=== PATIENT | female | born 1980 | race Caucasian/White ===

== ENCOUNTER 2016-09-23 06:54 | Emergency (ER) | payer OTHER ==
[~2016-09-23] VITALS: Ht 162.6 cm; Wt 80.0 kg
[2016-09-23 06:59] VITALS: Ht 162.6 cm; Wt 80.0 kg
[2016-09-23] MEDS ORDERED: LORAZEPAM 1 MG TAB PO ONE (07:30)
[2016-09-23 07:39] LABS: ADD SCAN DIFF NO
[2016-09-23 07:51] LABS: BASOPHILS % 0.4 % (0.0-2.0); EOSINOPHILS # 0.1 10^3/ul (0.0-0.5); EOSINOPHILS % 0.9 % (0.0-7.0); HEMATOCRIT 35.8 % (37.0-47.0); HEMOGLOBIN 11.7 g/dl (12.0-16.0); LYMPHOCYTES # 1.9 10^3/ul (0.8-2.9); LYMPHOCYTES % 20.6 % (15.0-51.0); MEAN CORPUSCULAR HEMOGLOBIN 28.2 pg (29.0-33.0); MEAN CORPUSCULAR HGB CONC 32.7 g/dl (32.0-37.0); MEAN CORPUSCULAR VOLUME 86.3 fl (82.0-101.0); MEAN PLATELET VOLUME 10.4 fl (7.4-10.4); MONOCYTE # 0.5 10^3/ul (0.3-0.9); MONOCYTES % 5.4 % (0.0-11.0); NEUTROPHIL # 6.8 10^3/ul (1.6-7.5); NEUTROPHILS % 72.5 % (39.0-77.0); PLATELET COUNT 321 10^3/UL (140-415); RED BLOOD COUNT 4.15 10^6/ul (4.20-5.40); RED CELL DISTRIBUTION WIDTH 13.6 % (11.5-14.5); WHITE BLOOD COUNT 9.4 10^3/ul (4.8-10.8)
[2016-09-23 08:19] LABS: CHLORIDE 106 mmol/L (97-110); POTASSIUM 3.9 mmol/L (3.5-5.1); SODIUM 140 mmol/L (135-144)
[2016-09-23 08:22] LABS: ANION GAP 8 (8-16); BLOOD UREA NITROGEN 23 mg/dl (7-20); CARBON DIOXIDE 30 mmol/L (21-31); CREATININE 0.61 mg/dl (0.44-1.00)
[2016-09-23 08:23] LABS: CALCIUM 9.1 mg/dl (8.4-10.2); GLUCOSE 98 mg/dl (70-220)
[2016-09-23 08:28] LABS: CREATINE KINASE 58 IU/L (23-200)
--- NOTE | 2016-09-23 08:33 | RADRPT ---
PROCEDURE: XR Chest. CLINICAL INDICATION: Chest pain. TECHNIQUE: Single frontal radiograph. COMPARISON: None. FINDINGS: Bibasilar atelectasis without evidence of focal consolidation, pneumothorax, or pleural effusions. Heart size is within normal limits. IMPRESSION: No acute cardiopulmonary changes. RPTAT: EE .Jarek Espinoza MD, MD Date Time Electronically viewed and signed by .Jarek Espinoza MD, on 09/23/2016 08:37 .C/
[2016-09-23 08:34] LABS: TROPONIN-I < 0.012 ng/ml (0.00-0.12)
[2016-09-23 08:35] LABS: TROPONIN-I < 0.012 ng/ml (0.00-0.12)
--- NOTE | 2016-09-23 08:41 | ERD ---
ER Documentation Chief Complaint Date/Time DATE: 09/23/16 TIME: 06 Chief Complaint CP, in custoday [employer], meth use HPI 35-year-old female presents to the emergency department by ambulance in custody with police for evaluation of chest discomfort. Patient states she was taken into custody to by police today. At that time, she had a nonspecific sensation in her chest without radiation. It was spontaneous in onset but associated with methamphetamine use. She described feeling anxious. She had no shortness of breath or hemoptysis. Her pain was nonspecific, visceral, poorly localized and nonexertional. She rated it as a 6 out of 10. 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 Pre-hospital vital signs were reviewed. Pre-hospital diagnostic tests were reviewed. ROS All systems reviewed and are negative except as per history of present illness. Allergies Allergies: Coded Allergies: No Known Allergy (Unverified , 11/12/12) PMhx/Soc History of Surgery: Yes (,cholesystectectomy) Anesthesia Reaction: No Hx Neurological Disorder: No Hx Respiratory Disorders: No Hx Cardiac Disorders: No Hx Psychiatric Problems: No Hx Miscellaneous Medical Probl: No FmHx Noncontributory for chief complaint with no history of early cardiac disease Physical Exam Vitals Vital Signs Date Time Temp Pulse Resp B/P Pulse Ox O2 Delivery O2 Flow Rate FiO2 09/23/16 06:59 98.4 120 22 133/104 100 Physical Exam GENERAL: The patient is well developed and appropriate for usual state of health in no apparent distress HEENT: Pupils equal, round, and reactive to light. EOMI. There is no scleral icterus. NECK: C-spine is soft and supple, there is no meningismus. There is no cervical lymphadenopathy. LUNGS: Clear to auscultation bilaterally. There are no rales, wheezes or rhonchi. HEART: Regular rate and rhythm, no murmurs, clicks, rubs or gallops. ABDOMEN: Soft, non-tender, non-distended. There are bowel sounds in all four quadrants. No rebound or guarding. EXTREMITIES: There is no peripheral cyanosis or edema. No focal swelling or erythema. NEURO: The patient moves all four extremities with 5/5 strength. Cranial nerves II - XII are intact. Normal gait. Alert and oriented SKIN: There is no apparent rash or petechiae. HEME/LYMPHATIC: There is no evidence of excessive bruising or lymphedema. PSYCHIATRIC: Patient is anxious appearing. Normal mental status noted. Result Diagram: 09/23/1615 09/23/16714 Results 24 hrs Laboratory Tests Test 09/23/16 07:15 White Blood Count 9.410^3/ul Red Blood Count 4.1510^6/ul Hemoglobin 11.7g/dl Hematocrit 35.8% Mean Corpuscular Volume 86.3fl Mean Corpuscular Hemoglobin 28.2pg Mean Corpuscular Hemoglobin Concent 32.7g/dl Red Cell Distribution Width 13.6% Platelet Count 88180^3/UL Mean Platelet Volume 10.4fl Neutrophils % 72.5% Lymphocytes % 20.6% Monocytes % 5.4% Eosinophils % 0.9% Basophils % 0.4% Nucleated Red Blood Cells % 0.0/100WBC Neutrophils # 6.810^3/ul Lymphocytes # 1.910^3/ul Monocytes # 0.510^3/ul Eosinophils # 0.110^3/ul Basophils # 0.010^3/ul Nucleated Red Blood Cells # 0.010^3/ul Sodium Level 140mmol/L Potassium Level 3.9mmol/L Chloride Level 106mmol/L Carbon Dioxide Level 30mmol/L Anion Gap 8 Blood Urea Nitrogen 23mg/dl Creatinine 0.61mg/dl Glucose Level 98mg/dl Calcium Level 9.1mg/dl Creatine Kinase 58IU/L Creatine Kinase Index 1.7 Creatinine Kinase MB (Mass) 1.00ng/ml Troponin I < 0.012ng/ml Current Medications Medications (Trade) Dose Ordered Sig/Ivett Route PRN Reason Start Time Stop Time Status Last Admin Dose Admin Lorazepam (Ativan) 1 mg ONCE ONCE PO 09/23/16 07:30 09/23/16 07:31 DC 09/23/16 07:13 Procedures/MDM Patient was taken to a room, seen and evaluated. Comfort measures were initiated. Diagnostic tests were ordered and reviewed. 3 LEAD RHYTHM STRIP: Normal sinus rhythm without ectopy EK lead EKG reviewed by myself: Sinus tachycardia Normal [place] and intervals No ST elevation, depression, or T wave inversion Impression: Normal EKG RADIOLOGY: reviewed with the radiologist REEVALUATION: Patient remained comfortable in appearance MEDICAL DECISION MAKING: This is a 35-year-old female with no significant cardiac risk factors other than methamphetamine abuse who presents to the emergency department with nonspecific symptoms about her chest. Her EKG is nonischemic. She has no evidence of significant ischemic ongoing symptoms. Her troponin is reassuring. Her chest x-ray demonstrates no evidence of pneumonia or high-risk intrathoracic concerns. After considering and ruling out these high acuity potential diagnoses, patient appears to be clinically well and appropriate for outpatient care. Departure Diagnosis: Primary Impression: Chest pain Condition: Stable Patient Instructions: Chest Pain, Uncertain Cause Additional Instructions: Patient is OK to book. TASH WOOD September 23, 2016 08:41
== END 2016-09-23 09:13 | disposition home or self-care (01) ==
LOC: E/R 06:54
DX: R07.9 Chest pain, unspecified (principal)
CPT/HCPCS: 36415; 71010; 80048; 82550; 82553; 84484; 85025; 93005